=== PATIENT | female | born 1980 | race Caucasian/White ===

== ENCOUNTER 2016-09-05 12:05 | Emergency (ER) | payer OTHER ==
[~2016-09-05] VITALS: Ht 157.5 cm; Wt 90.7 kg
--- NOTE | 2016-09-05 13:04 | ED GENERAL ADULT ---
History of Present Illness General Chief Complaint: General Adult Stated Complaint: SEVERE ANXIETY ATTACK Source: patient Exam Limitations: no limitations Vital Signs & Intake/Output Vital Signs & Intake/Output Vital Signs Date Time Temp Pulse Resp B/P Pulse O2 O2 Flow FiO2 Ox Delivery Rate 09/05 1443 97.4 79 18 144/78 97 09/05 1355 97.2 80 18 122/64 96 Room Air 09/05 1333 Room Air Room Air 09/05 1208 97.2 95 16 138/93 96 Room Air Allergies Coded Allergies: NO KNOWN ALLERGIES (12/27/12) Reconcile Medications Hydroxyzine Pamoate (Vistaril) 50 MG CAPSULE 1 CAP PO BID PRN PANIC ATTACK Triage Note: 36 Y/O FEMALE C/O "I THINK ITS ANXIETY" SINCE THIS AM. STATES SHE USED TO BE ON PAXIL BUT DIDNT LIKE HOW IT MADE HER FEEL SO SHE WAS ON LEXAPRO ("BACK IN COLLEGE") WHICH HELPED. HAS NOT BEEN ON LEXAPRO FOR MANY YEARS HOWEVER STATES SHE HAS BEEN WAKING UP IN THE MORNINGS "FEELING MY HEART RACING, SHORT OF BREATH AND LIKE MY THROAT IS CLOSING". STATES THIS MORNING SHE HAD THE SAME SYMPTOMS WITH L EAR PAIN AND L SIDED THROAT DISCOMFORT. TAKEN FOR EKG Triage Nurses Notes Reviewed? yes Onset: Abrupt Duration: constant Timing: recent history Severity: moderate Severity Numbers: 5 No Modifying Factors: none : No Patient currently breastfeeds: No HPI: Patient is a 36-year-old female with a past medical history of anxiety and panic attacks who presents emergency room thin that she has not had anxiety or panic attack and a few months however she states there are multiple stressors at home with patient states that this morning per proximally 5 hours patient has had improvement of her initial 8 out of 10 nonradiating substernal chest heaviness with radiation of flushing sensation to her jaw and anxiety which she states that it is significant improvement prior to being seen currently. Patient denies any fever, chills, arm pain palpitations diaphoresis leg swelling hemoptysis shortness of breath cough history of DVT or PE and denies any current oral contraceptive use. Denies any illicit drug use denies any smoking tobacco or significant alcohol use (IRINA HAYES,ZULAY) Past History Travel History Traveled to [place] past 21 day No Medical History Any Pertinent Medical History? none Neurological: NONE EENT: NONE Cardiovascular: NONE Respiratory: NONE Gastrointestinal: NONE Hepatic: NONE Renal: NONE Musculoskeletal: NONE Psychiatric: NONE Endocrine: NONE Blood Disorders: NONE Cancer(s): NONE SHADE MATCHER/Reproductive: NONE Surgical History Surgical History: non-contributory, N Psychosocial History What is your primary language Frisian Tobacco Use: Never used Family History Hx Contributory? No (ZULAY ARZOLA) Review of Systems Review of Systems Constitutional: Reports: no symptoms. EENTM: Reports: no symptoms. Respiratory: Reports: see HPI. Cardiovascular: Reports: see HPI, chest pain. GI: Reports: no symptoms. Genitourinary: Reports: no symptoms. Musculoskeletal: Reports: no symptoms. Skin: Reports: no symptoms. Neurological/Psychological: Reports: see HPI, anxiety. Hematologic/Endocrine: Reports: no symptoms. Immunologic/Allergic: Reports: no symptoms. All Other Systems: Reviewed and Negative (ZULAY ARZOLA) Physical Exam Physical Exam General Appearance: no apparent distress, alert, comfortable Comments: Well-developed well-nourished person in no acute distress HEENT: Normal EENT exam, extraocular motion intact, no nystagmus. Pupils equally round and reactive to light and accommodation. Nose is atraumatic. External auditory canal and Tympanic membranes clear. Pharynx normal. No swelling or edema. Neck: Supple, no lymphadenopathy, normal range of motion without pain or tenderness Back: Nontender, no CVA tenderness. Cardiovascular: Regular rate and rhythms no murmurs rubs or gallops, normal JVP Respiratory: Chest nontender. No respiratory distress.breath sounds clear to auscultation bilaterally Abdomen: Soft, nontender nondistended, no appreciable organomegaly. Normal bowel sounds. No ascites Extremity: No edema, no calf tenderness to palpation, normal and equal pulses. Neuro: Alert oriented x3, motor sensory normal, . Skin: No appreciable rash on exposed skin, skin is warm and dry. Psych: Mood and affect is normal, memory and judgment is normal. Core Measures ACS in differential dx? Yes CVA/TIA Diagnosis: No Severe Sepsis Present: No Septic Shock Present: No (ZULAY ARZOLA) Progress Differential Diagnoses I considered the following diagnoses in my evaluation of the patient: [Anxiety, pulmonary embolism, myocardial infarction, pneumothorax, hemothorax, cardiac arrhythmia, electrolyte abnormality,] Plan of Care: Orders Procedure Date/time Status TROPONIN LEVEL 09/05 1313 Complete MAGNESIUM 09/05 1313 Complete COMPREHENSIVE METABOLIC PANEL 09/05 1313 Complete CBC WITHOUT DIFFERENTIAL 09/05 1313 Complete URINE 09/05 1214 Complete URINALYSIS 09/05 1214 Complete EKG 09/05 1206 Active Laboratory Tests 09/05/16 1330: Anion Gap 7, Estimated GFR > 60, BUN/Creatinine Ratio 20.0, Glucose 91, Calcium 9.7, Magnesium 1.9, Total Bilirubin 0.6, AST 15, ALT 33, Alkaline Phosphatase 92 , Troponin I < 0.01, Total Protein 7.4, Albumin 4.2, Globulin 3.2, Albumin/ Globulin Ratio 1.3, CBC w Diff NO MAN DIFF REQ, RBC 4.40, MCV 88.5, MCH 30.1, RDW 12.6, MPV 7.1 L, Gran % 61.4, Lymphocytes % 30.9, Monocytes % 6.5, Eosinophils % 0.5, Basophils % 0.7, Absolute Granulocytes 4.5, Absolute Lymphocytes 2.2, Absolute Monocytes 0.5, Absolute Eosinophils 0, Absolute Basophils 0, PUBS MCHC 34.0 09/05/16 1227: Urine Color YEL, Urine Clarity CLEAR, Urine pH 6.0, Ur Specific Mouthcard 1.020, Urine Protein NEG, Urine Ketones NEG, Urine Nitrite NEG, Urine Bilirubin NEG, Urine Urobilinogen 0.2, Ur Leukocyte Esterase NEG, Ur Microscopic EXAM NOT REQUIRED, Urine Hemoglobin NEG, Urine Glucose NEG, Urine Test NEGATIVE Patient currently is in no apparent distress. After more than 5 hours of chest pain patient's first troponin was unremarkable patient's EKG was unremarkable patient was given Vistaril and had significant resolution of chest pain. Discussed with patient that if symptoms worsen to return to the emergency room. Upon discharge patient looks well no apparent distress. Patient was given referral for psychiatric follow-up for concerns of panic attack and anxiety. PERC - 0 Suspicion of cardiac involvement is extremely low and patient had PERC 0 essentially ruling out pulmonary embolism. (IRINA HAYES,ZULAY) Diagnostic Imaging: Viewed by Me: Radiology Read. CXR Impression: no acute abnormality, no infiltrates, normal size heart Initial ED EKG: SINUS RHYTHM AT 82 BPM Comments: PATIENT: LOTTIE PERRY PRESENT AGE: 36 PATIENT ACCOUNT NO: [id number] : 81 LOCATION: [facility] ORDERING PHYSICIAN: ZULAY HAYES SERVICE DATE: 09/05/16 EXAM TYPE: RAD - XRY-CHEST XRAY, PA AND LATERAL EXAMINATION: XR CHEST CLINICAL INFORMATION: Chest pain COMPARISON: None TECHNIQUE: 2 views of the chest were obtained. FINDINGS: The cardiomediastinal silhouette is normal. The lungs are symmetrically well expanded. The lungs are clear. No pleural effusions or pneumothorax. The visualized osseous structures are unremarkable. Upper abdomen is unremarkable. IMPRESSION: Unremarkable examination. DICTATED BY: KONG MCGUIRE MD DATE/TIME DICTATED:09/05/161357 MULTI DISCIPLINED LANGUAGE ANALYST:YON (ZULAY ARZOLA) Departure Departure Disposition: HOME OR SELF CARE Condition: Stable Clinical Impression Primary Impression: Panic Secondary Impressions: Anxiety, Chest pain Referrals: GAURI SENIOR,LAURENT Hammond (PCP/Family) Additional Instructions: As discussed if no better on Thursday follow-up with primary care doctor, please follow up and establish from the list of psychiatric providers TO CALL TO MAKE AN APPOINTMENT for further evaluation and treatment of your symptoms. If symptoms worsen return to emergency room. Begin the prescription of Vistaril for your future occurrence of symptoms. Prescriptions are waiting at [facility] Departure Forms: Customer Survey General Discharge Information Prescriptions: Current Visit Scripts Hydroxyzine Pamoate (Vistaril) 1 CAP PO BID PRN PANIC ATTACK #15 CAP (ZULAY ARZOLA) PA/ROVING DEPARTMENT END FINDER Co-Sign Statement Statement: ED Attending supervision documentation- [] I saw and evaluated the patient. I have also reviewed all the pertinent lab results and diagnostic results. I agree with the findings and the plan of care as documented in the PA's/ROVING DEPARTMENT END FINDER's documentation. [X] I have reviewed the ED Record and agree with the PA's/ROVING DEPARTMENT END FINDER's documentation. [] Additions or exceptions (if any) to the PAs/ROVING DEPARTMENT END FINDER's note and plan are summarized below: [] (SHUKRI SENIOR,LANNY) Critical Care Note Critical Care Note Critical Care Time: non-applicable (ZULAY ARZOLA)
[2016-09-05 13:37] LABS: ABSOLUTE BASOPHIL COUNT 0 /CUMM (0.0-0.2); ABSOLUTE EOSINOPHIL COUNT 0 /CUMM (0.0-0.7); ABSOLUTE GRANULOCYTE CT 4.5 /CUMM (1.4-6.5); ABSOLUTE LYMPH COUNT 2.2 /CUMM (1.2-3.4); ABSOLUTE MONOCYTE COUNT 0.5 /CUMM (0.10-0.60); BASOPHIL % 0.7 % (0.0-2.0); EOSINOPHIL % 0.5 % (0-5); GRANULOCYTE % 61.4 % (42.2-75.2); HEMATOCRIT 38.9 % (37-47); MEAN CORPUSCULAR HGB 30.1 PG (27.0-31.0); MEAN CORPUSCULAR VOLUME 88.5 FL (81.0-99.0); MEAN PLATELET VOLUME 7.1 FL (7.4-10.4); PLATELET COUNT 267 /CUMM (130-400); RBC DISTRIBUTION WIDTH 12.6 % (11.5-14.5); WHITE BLOOD CELL COUNT 7.3 /CUMM (4.8-10.8)
--- NOTE | 2016-09-05 14:05 | RADIOLOGY REPORT ---
EXAMINATION: XR CHEST CLINICAL INFORMATION: Chest pain COMPARISON: None TECHNIQUE: 2 views of the chest were obtained. FINDINGS: The cardiomediastinal silhouette is normal. The lungs are symmetrically well expanded. The lungs are clear. No pleural effusions or pneumothorax. The visualized osseous structures are unremarkable. Upper abdomen is unremarkable. IMPRESSION: Unremarkable examination.
[2016-09-05 14:43] VITALS: BP 144/78
[2016-09-05] MEDS ORDERED: VISTARIL50 M1 PO (15:30)
== END 2016-09-05 15:37 ==
LOC: ERH 12:05
PROVIDERS: Physician Assistant
DX: F41.0 Panic disorder [episodic paroxysmal anxiety] (principal); F41.9 Anxiety disorder, unspecified; R07.2 Precordial pain
CPT/HCPCS: 81003; 81025; 93005; 93010